=== PATIENT | male | born 1980 | race African-American/Black ===

== ENCOUNTER 2018-03-12 14:42 | Emergency (ER) | payer OTHER ==
--- NOTE | 2018-03-12 14:47 | PDOC ---
Attending Attestation - Resident Resident Name: Luis Manuel Shearer - ED Attending Attestation I have performed the following: I have examined & evaluated the patient, The case was reviewed & discussed with the resident, I agree w/resident's findings & plan, Exceptions are as noted - HPI HPI: 03/12/18 16:20 The patient is a 37 year old male with past medical history of gastritis (5 years ago) who presents to the ED with complaints of abdominal pain, nausea and vomiting since 7 am today. The patient locates the pain to his mid abdominal region with some mild pain in his RLQ. He notes numerous episodes of non-bilious , non-bloody emesis and reports multiple formed non bloody brown stools today as well. He denies any melena or hematochezia. The patient reports his pain is reminiscent of his gastritis. He also reports going out drinking last night, but denies any excessive drinking or alcohol abuse. He denies any history of abdominal surgeries. He denies any fevers, chills, cough, SOB, CP, or urinary complaints. Denies weakness, dizziness. - Physicial Exam PE: 03/12/18 16:20 GENERAL: Awake, alert, and fully oriented, in no acute distress HEAD: No signs of trauma EYES: PERRLA, EOMI, sclera anicteric, conjunctiva clear ENT: Auricles normal inspection, hearing grossly normal, nares patent, oropharynx clear without exudates. dry MM NECK: Normal ROM, supple, no lymphadenopathy, JVD, or masses LUNGS: Breath sounds equal, clear to auscultation bilaterally. No wheezes, and no crackles HEART: Regular rate and rhythm, normal S1 and S2, no murmurs, rubs or gallops ABDOMEN: Soft, diffuse ttp, +RLQ ttp, normoactive bowel sounds. No guarding, no rebound. No masses EXTREMITIES: Normal range of motion, no edema. No clubbing or cyanosis. No cords, erythema, or tenderness NEUROLOGICAL: Normal speech, cranial nerves intact, negative pronator drift, 5/ 5 strength in all 4 extremities, normal sensation to light touch in all 4 extremities, normal cerebellar exam, normal gait, normal reflexes and tone SKIN: Warm, Dry, normal turgor, no rashes or lesions noted. - Medical Decision Making 03/12/18 15:21 37yo M with no significant past medical history presents emergency Department with multiple episodes of nausea/vomiting/diarrhea associated with diffuse abdominal pain. Vitals unremarkable. Exam with dry MM, diffuse abdominal tenderness palpation including in the right lower quadrant. Differential includes but is not limited to gastroenteritis versus appendicitis versus gastritis versus colitis. Plan: -labs -UA -CTAP -pain control -antiemetics -fluids -reassess 03/12/18 16:27 Pt states he feels better and is not as nauseous any more. +persistent abd ttp. CBC/CMP wnl. UA, CTAP pending. Pt signed out to evening attending for further mgmt/dispo
[2018-03-12] MEDS ORDERED: SODIUM CHLORIDE 1,000 ML IV STA (14:52)
[2018-03-12] MEDS ORDERED: ONDANSETRON 4 MG/2 ML VIAL IVPUSH ONE (14:52)
[2018-03-12] MEDS ORDERED: FAMOTIDINE IV 20 MG/12 ML VIAL IVPB ONE (14:53)
[2018-03-12] MEDS ORDERED: ACETAMINOPHEN 1000 MG/100 ML VIAL (NON FORMULARY) IVPB ONE (15:08)
--- NOTE | 2018-03-12 15:10 | PDOC ---
History of Present Illness - General Chief Complaint: Nausea/Vomiting Stated Complaint: VOMITING Time Seen by Provider: 03/12/18 14:46 - History of Present Illness Initial Comments: 03/12/18 14:50 Mr. Thibodeaux is a 37 yo male w/ pmh of gastritis who presents for evaluation of nausea/vomiting since 0700 this morning. He is in town visiting and reports he had a small amount of alcohol last night but nothing out of the ordinary for him. He denies any drug use. Has not eaten anything out of the ordinary and has had no abdominal trauma. Has had several episodes of N/V which is yellow/green and non-bloody. The patient denies chest pain, shortness of breath, headache and dizziness. Denies fever, chills, nausea, vomit, diarrhea and constipation. Denies dysuria, frequency, urgency and hematuria Allergies: NKDA Past History - Past Medical History Allergies/Adverse Reactions: Allergies Allergy/AdvReac Type Severity Reaction Status Date / Time No Known Allergies Allergy Verified 03/12/18 15:05 Review of Systems - Review of Systems Comments:: 03/12/18 17:18 GENERAL/CONSTITUTIONAL: No fever or chills. No weakness. HEAD, EYES, EARS, NOSE AND THROAT: No change in vision. No ear pain or discharge. No sore throat. CARDIOVASCULAR: No chest pain or shortness of breath RESPIRATORY: No cough, wheezing, or hemoptysis. GASTROINTESTINAL: +Nausea/vomiting as described. No diarrhea or constipation. GENITOURINARY: No dysuria, frequency, or change in urination. MUSCULOSKELETAL: No joint or muscle swelling or pain. No neck or back pain. SKIN: No rash NEUROLOGIC: No headache, vertigo, loss of consciousness, or change in strength/ sensation. ENDOCRINE: No increased thirst. No abnormal weight change HEMATOLOGIC/LYMPHATIC: No anemia, easy bleeding, or history of blood clots. ALLERGIC/IMMUNOLOGIC: No hives or skin allergy. *Physical Exam - Physical Exam Comments: 03/12/18 17:19 GENERAL: Awake, alert, and fully oriented, in no acute distress HEAD: No signs of trauma, normocephalic, atraumatic EYES: PERRLA, EOMI, sclera anicteric, conjunctiva clear ENT: Auricles normal inspection, hearing grossly normal, nares patent, oropharynx clear without exudates. Moist mucosa NECK: Normal ROM, supple, no lymphadenopathy, JVD, or masses LUNGS: No distress, speaks full sentences, clear to auscultation bilaterally HEART: Regular rate and rhythm, normal S1 and S2, no murmurs, rubs or gallops, peripheral pulses normal and equal bilaterally. ABDOMEN: +RLQ TTP. Soft, normoactive bowel sounds. No guarding, no rebound. No masses EXTREMITIES: Normal inspection, Normal range of motion, no edema. No clubbing or cyanosis. NEUROLOGICAL: Cranial nerves II through XII grossly intact. Normal speech, normal gait, no focal sensorimotor deficits SKIN: Warm, Dry, normal turgor, no rashes or lesions noted. ED Treatment Course - LABORATORY CBC & Chemistry Diagram: 03/12/18 15:35 03/12/18 15:35 Medical Decision Making - Medical Decision Making 03/12/18 18:31 Mr. Thibodeaux is a 37 yo male w/ pmh as described who presents for evaluation of n/ v. Given pt's RLQ tenderness, imaging and labs sent to evaluate for acute appendicitis or other acute process. Patient reporting significant improvement following NS, zofran, pepcid, and tylenol. Labs significant for elevated creatinine to 1.5. 2nd Liter NS ordered for hydration. 03/12/18 18:[address] read. 03/12/18 18:50 Patient signed out to Dr. Drummond for further evaluation. Laboratory Results - last 24 hr 03/12/18 03/12/18 15:35 15:35 WBC 9.1 RBC 5.12 Hgb 15.4 Hct 45.7 MCV 89.4 MCH 30.1 MCHC 33.7 RDW 13.8 Plt Count 240 MPV 9.2 Neutrophils % 84.8 H Lymphocytes % 11.2 Monocytes % 3.7 L Eosinophils % 0.0 Basophils % 0.3 Sodium 145 Potassium 3.7 Chloride 107 Carbon Dioxide 17 L Anion Gap 21 H BUN 15 Creatinine 1.5 H Creat Clearance w eGFR 52.66 Random Glucose 78 Calcium 9.2 Total Bilirubin 0.8 AST 29 ALT 36 Alkaline Phosphatase 67 Total Protein 8.7 H Albumin 4.5 Lipase 84 *DC/Admit/Observation/Transfer Diagnosis at time of Disposition: Nausea & vomiting Qualifiers: Vomiting type: unspecified Vomiting Intractability: unspecified Qualified Code( s): R11.2 - Nausea with vomiting, unspecified - Referrals - Patient Instructions Printed Discharge Instructions: DI for Vomiting -- Adult, DI for Nausea -- Adult - Post Discharge Activity
[2018-03-12 15:17] VITALS: BMI 27.8
[2018-03-12] MEDS ORDERED: ACETAMINOPHEN INJECTION 100 ML IVPB ONE (15:39)
[2018-03-12] MEDS ORDERED: FAMOTIDINE 20 MG/50 ML IVPB 20 MG/50 ML MG IVPB ONE (15:40)
[2018-03-12] MEDS ORDERED: ONDANSETRON 4 MG/2 ML VIAL ONE (15:40)
[2018-03-12 15:43] LABS: BASO % 0.3 % (0-2.0); HEMATOCRIT 45.7 % (35.4-49); HEMOGLOBIN 15.4 GM/dL (11.7-16.9); LYMPH % 11.2 % (8-40); MCH 30.1 pg (25.7-33.7); MCHC 33.7 g/dl (32.0-35.9); MEAN CELL VOLUME 89.4 fl (80-96); MEAN PLT VOLUME 9.2 fl (7.5-11.1); MONO % 3.7 % (3.8-10.2); NEUT % 84.8 % (42.8-82.8); PLATELET COUNT 240 K/MM3 (134-434); RBC 5.12 M/mm3 (4.00-5.60); RDW 13.8 % (11.9-15.9); WHITE BLOOD COUNT 9.1 K/mm3 (4.0-10.0)
[2018-03-12] MEDS ORDERED: SODIUM CHLORIDE 0.9% 500 ML INFUS.BAG IV ONE (15:47)
[2018-03-12 16:08] LABS: ALBUMIN 4.5 g/dl (3.4-5.0); ANION GAP 21 (8-16); BILIRUBIN,TOTAL 0.8 mg/dL (0.2-1.0); BLOOD UREA NITROGEN 15 mg/dL (7-18); CALCIUM 9.2 mg/dL (8.5-10.1); CHLORIDE 107 mmol/L (98-107); CO2 17 mmol/L (21-32); CREATININE 1.5 mg/dL (0.7-1.3); GLUCOSE,RANDOM 78 mg/dL (74-106); LIPASE 84 U/L (73-393); POTASSIUM 3.7 mmol/L (3.5-5.1); SGOT/AST 29 U/L (15-37); SGPT/ALT 36 U/L (12-78); SODIUM 145 mmol/L (136-145); TOT PROT 8.7 g/dl (6.4-8.2)
[2018-03-12 16:09] LABS: ALK PHOS 67 U/L (45-117)
--- NOTE | 2018-03-12 16:58 | PDOC ---
*Physical Exam - Vital Signs Last Vital Signs Temp Pulse Resp BP Pulse Ox 97.5 F L 71 16 140/85 100 03/12/18 14:42 03/12/18 14:42 03/12/18 14:42 03/12/18 14:42 03/12/18 14:42 ED Treatment Course - LABORATORY CBC & Chemistry Diagram: 03/12/18 15:35 03/12/18 15:35 - ADDITIONAL ORDERS Additional order review: Laboratory Results 03/12/18 15:35 Sodium 145 Potassium 3.7 Chloride 107 Carbon Dioxide 17 L Anion Gap 21 H BUN 15 Creatinine 1.5 H Creat Clearance w eGFR 52.66 Random Glucose 78 Calcium 9.2 Total Bilirubin 0.8 AST 29 ALT 36 Alkaline Phosphatase 67 Total Protein 8.7 H Albumin 4.5 Lipase 84 03/12/18 15:35 RBC 5.12 MCV 89.4 MCHC 33.7 RDW 13.8 MPV 9.2 Neutrophils % 84.8 H Lymphocytes % 11.2 Monocytes % 3.7 L Eosinophils % 0.0 Basophils % 0.3 - Medications Given in the ED: ED Medications Discontinued Medications Generic Name Dose Route Start Last Admin Trade Name Silvinoq PRN Reason Stop Dose Admin Acetaminophen 1,000 mg 03/12/18 15:08 03/12/18 15:47 Ofirmev Injection - IVPB 03/12/18 15:09 1,000 mg ONCE ONE Administration Famotidine 20 mg in 12 mls @ 144 mls/hr 03/12/18 14:53 03/12/18 15:47 Pepcid 20 Mg/12 Ml Push IVPB 03/12/18 14:57 144 mls/hr ONCE ONE Administration Sodium Chloride 1,000 mls @ 1,000 mls/hr 03/12/18 14:52 03/12/18 15:47 Normal Saline - IV 03/12/18 15:51 1,000 mls/hr ASDIR STA Administration Ondansetron HCl 4 mg 03/12/18 14:52 03/12/18 15:47 Zofran Injection IVPUSH 03/12/18 14:53 4 mg ONCE ONE Administration Medical Decision Making - Medical Decision Making 03/12/18 16:57 37 YO MALE p/w N,V,D for 1 day, diffuse abd tenderness,cbc is wnl -on exam found ot have RLQ pain and ct scan is pending 03/12/18 20:27 ct scan did not shoW any colitis,appendicitis or diverticulitis It did show a submucosal thickening in his rectum w probable rt sided sumucosal abscess -pt informed his right testicle was elevated in his inguinal canal 03/12/18 20:43 pt 's symptoms resolved and he was given a copy of his ctscan to followup with his PCP 03/13/18 16:44 *DC/Admit/Observation/Transfer Diagnosis at time of Disposition: Nausea & vomiting Qualifiers: Vomiting type: unspecified Vomiting Intractability: unspecified Qualified Code( s): R11.2 - Nausea with vomiting, unspecified - Discharge Dispostion Disposition: HOME Condition at time of disposition: Good - Prescriptions Prescriptions: Ondansetron HCl [Zofran] 4 mg PO ASDIR #10 tablet - Referrals - Patient Instructions Printed Discharge Instructions: DI for Nausea -- Adult, DI for Vomiting -- Adult Additional Instructions: During your stay at [facility], you were evaluated and treated for nausea and vomiting. You received a CT scan of your abdomen and a copy of the results were provided to you. You were noted to have thickening of the wall of your rectum and your right testicle was noted to be in your inguinal canal. We recommend that you follow-up with your primary care provider to discuss the results further. The remainder of your labs were relatively unremarkable. Please drink plenty of fluids upon discharge, as you were likely dehydrated before your visit. You have been provided with a prescription for sublingual zofran tablets. Please take this medication twice a day if you experience any further nausea or vomiting. Please return to the emergency department if you experience any of the following symptoms: - Persistent fever/chills - Worsening abdominal pain - Persistent nausea/vomiting/diarrhea - Dark, tarry or blood stool - Worsening pain with defecation - Any new or concerning symptoms - Post Discharge Activity
--- NOTE | 2018-03-12 18:55 | PDOC ---
*Physical Exam - Vital Signs Last Vital Signs Temp Pulse Resp BP Pulse Ox 97.5 F L 71 16 140/85 100 03/12/18 14:42 03/12/18 14:42 03/12/18 14:42 03/12/18 14:42 03/12/18 14:42 ED Treatment Course - LABORATORY CBC & Chemistry Diagram: 03/12/18 15:35 03/12/18 15:35 - ADDITIONAL ORDERS Additional order review: Laboratory Results 03/12/18 15:35 Sodium 145 Potassium 3.7 Chloride 107 Carbon Dioxide 17 L Anion Gap 21 H BUN 15 Creatinine 1.5 H Creat Clearance w eGFR 52.66 Random Glucose 78 Calcium 9.2 Total Bilirubin 0.8 AST 29 ALT 36 Alkaline Phosphatase 67 Total Protein 8.7 H Albumin 4.5 Lipase 84 03/12/18 15:35 RBC 5.12 MCV 89.4 MCHC 33.7 RDW 13.8 MPV 9.2 Neutrophils % 84.8 H Lymphocytes % 11.2 Monocytes % 3.7 L Eosinophils % 0.0 Basophils % 0.3 - Medications Given in the ED: ED Medications Discontinued Medications Generic Name Dose Route Start Last Admin Trade Name Freq PRN Reason Stop Dose Admin Acetaminophen 1,000 mg 03/12/18 15:08 03/12/18 15:47 Ofirmev Injection - IVPB 03/12/18 15:09 1,000 mg ONCE ONE Administration Famotidine 20 mg in 12 mls @ 144 mls/hr 03/12/18 14:53 03/12/18 15:47 Pepcid 20 Mg/12 Ml Push IVPB 03/12/18 14:57 144 mls/hr ONCE ONE Administration Sodium Chloride 1,000 mls @ 1,000 mls/hr 03/12/18 14:52 03/12/18 15:47 Normal Saline - IV 03/12/18 15:51 1,000 mls/hr ASDIR STA Administration Ondansetron HCl 4 mg 03/12/18 14:52 03/12/18 15:47 Zofran Injection IVPUSH 03/12/18 14:53 4 mg ONCE ONE Administration Medical Decision Making - Medical Decision Making Pt signed out by Dr. Shearer. Will follow up CT A/P. If normal, will discharge home. 03/12/18 18:54 CT A/P notable for R testicle present in inguinal canal and thickening of the distal rectal wall, suggestive of abscess. After discussing findings with patient, pt denies any further abdominal pain, rectal pain, melena, hematochezia. Denies any hx of undescended testicle, trauma to the area, testicular pain or groin/inguinal pain. Pt discharged home with PO zofran and outpt follow-up with PMD. Counseling provided, all questions answered. 03/12/18 20:51 *DC/Admit/Observation/Transfer Diagnosis at time of Disposition: Nausea & vomiting Qualifiers: Vomiting type: unspecified Vomiting Intractability: unspecified Qualified Code( s): R11.2 - Nausea with vomiting, unspecified - Discharge Dispostion Disposition: HOME Condition at time of disposition: Good Decision to Admit order: No - Prescriptions Prescriptions: Ondansetron HCl [Zofran] 4 mg PO ASDIR #10 tablet - Referrals - Patient Instructions Printed Discharge Instructions: DI for Nausea -- Adult, DI for Vomiting -- Adult Additional Instructions: During your stay at [facility], you were evaluated and treated for nausea and vomiting. You received a CT scan of your abdomen and a copy of the results were provided to you. You were noted to have thickening of the wall of your rectum and your right testicle was noted to be in your inguinal canal. We recommend that you follow-up with your primary care provider to discuss the results further. The remainder of your labs were relatively unremarkable. Please drink plenty of fluids upon discharge, as you were likely dehydrated before your visit. You have been provided with a prescription for sublingual zofran tablets. Please take this medication twice a day if you experience any further nausea or vomiting. Please return to the emergency department if you experience any of the following symptoms: - Persistent fever/chills - Worsening abdominal pain - Persistent nausea/vomiting/diarrhea - Dark, tarry or blood stool - Worsening pain with defecation - Any new or concerning symptoms - Post Discharge Activity
[2018-03-12 20:58] VITALS: BP 137/68; PULSE 79; TEMP 98.2
[2018-03-12] MEDS ORDERED: KETOROLAC TROMETHAMINE 30 MG/1 ML VIAL IM ONE (21:02)
== END 2018-03-12 20:58 | disposition home or self-care (01) ==
LOC: JER 14:42
PROC: 3E033NZ Introduction of Analgesics, Hypnotics, Sedatives into Peripheral Vein, Percutaneous Approach (ICD-10-PCS; principal; 2018-03-12)
PROC: 3E033GC Introduction of Other Therapeutic Substance into Peripheral Vein, Percutaneous Approach (ICD-10-PCS; 2018-03-12)
PROC: 3E033GC Introduction of Other Therapeutic Substance into Peripheral Vein, Percutaneous Approach (ICD-10-PCS; 2018-03-12)
DX: R11.2 Nausea with vomiting, unspecified (principal); Z87.19 Personal history of other diseases of the digestive system
CPT/HCPCS: 36415; 74177-TC; 80053; 83690; 85025; 99284-25; J0131; J7030